=== PATIENT | female | born 1990 | race Two or more races ===

== ENCOUNTER 2016-11-05 17:27 | Emergency (ER) | payer SELFPAY ==
[~2016-11-05] VITALS: Ht 162.6 cm; Wt 58.8 kg
[~2016-11-05 17:27] MED LIST: CLARITIN,ALAVAR10 MG PO; MOTRIN800 MG PO; NOHOMEMEDS; PREDNISONE10 MG PO; PROVENTIL HFA6.7 GM IH; TAMIFLU75 MG PO; ZOFRAN ODT4 MG PO
[2016-11-05 17:51] LABS: HEMATOCRIT 38.3 % (36.0-46.0); MCH 30.8 PG (29.0-34.0); MCHC 33.4 G/DL (30.0-36.0); MCV 92.3 FL (83-99); MEAN PLAT.VOLUME 9.2 uM^3 (9.5-12.4); PLATELET COUNT 234 K/uL (156-360); RBC DIS.WIDTH-CV 12.1 % (11.8-14.6); RBC DIS.WIDTH-SD 41.2 % (39-53); RED BLOOD COUNT 4.15 M/uL (3.80-5.20); WHITE BLOOD COUNT 5.5 K/uL (4.1-10.2)
[2016-11-05 18:06] LABS: CHLORIDE 103 mEq/L (99-109); POTASSIUM 3.6 mEq/L (3.7-5.4); SODIUM 135 mEq/L (136-147)
[2016-11-05 18:08] LABS: GLUCOSE 120 mg/dL (70-99)
[2016-11-05 18:09] LABS: ANION GAP 9 MEQ/L (2-14)
[2016-11-05 18:10] LABS: TOTAL BILIRUBIN 0.4 mg/dL (0.0-1.0)
[2016-11-05 18:12] LABS: ALKALINE PHOSPHATASE 37 IU/L (3-129); GFR ESTIMATE (CALCULATED) > 59 mL/min/
[2016-11-05 18:13] LABS: UREA NITROGEN (BUN) 11 mg/dL (9-23)
[2016-11-05 18:20] LABS: QUANTITATIVE HCG 932.5 MIU/ML
[2016-11-05 19:13] LABS: ADD MIUA? YES; BILIRUBIN NEGATIVE; BLOOD NEGATIVE; COLOR YELLOW ((YELLOW)); GLUCOSE (STRIP) NEGATIVE; KETONES 20; LEUKOCYTES NEGATIVE; NITRITE POSITIVE; PROTEIN (STRIP) 30; SPECIFIC GRAVITY 1.026 (1.000-1.030); UROBILINOGEN 0.2 MG/DL (0.2-1.0)
[2016-11-05 19:25] LABS: BACTERIA NONE SEEN /HPF; EPITHELIAL CELLS 2+ /HPF; MUCUS 4+ /LPF; RED BLOOD CELLS NONE SEEN /HPF (0-5); UCUL ADDED? NO; WHITE BLOOD CELLS NONE SEEN /HPF (0-5)
[2016-11-05 19:37] LABS: INFLUENZA A VIRAL ANTIGEN NEGATIVE; INFLUENZA B VIRAL ANTIGEN POSITIVE
[2016-11-05] MEDS ORDERED: ZITHROMAX Z-PA250 MG PO (20:09)
[2016-11-05] MEDS ORDERED: TAMIFLU75 MG PO (20:09)
[2016-11-05 20:33] VITALS: BP 131/78
== END 2016-11-05 20:35 | disposition home or self-care (01) ==
LOC: EME 17:27
PROVIDERS: Physician Assistant
DX: O23.11 Infections of bladder in pregnancy, first trimester (principal); J10.1 Influenza due to other identified influenza virus with other respiratory manifestations; Z3A.00 Weeks of gestation of pregnancy not specified; Z88.1 Allergy status to other antibiotic agents
CPT/HCPCS: 80053; 81003; 84702; 85027; 87077; 87086; 87186; 87502; 99281; 99283

== ENCOUNTER 2017-04-22 21:16 | Outpatient (CLI) | payer OTHER ==
[~2017-04-22 21:16] MED LIST changes: +ZITHROMAX Z-PA250 MG PO
[2017-04-22 21:39] VITALS: BP 102/54
[2017-04-22 23:45] LABS: AMPHETAMINE NEGATIVE (500 ng/mL); BARBITURATES NEGATIVE (200 ng/mL); BENZODIAZEPINES NEGATIVE (150 ng/mL); COCAINE NEGATIVE (150 ng/mL); INTERNAL CONTROLS VALID? YES; METHADONE NEGATIVE (200 ng/mL); METHAMPHETAMINE NEGATIVE (500 ng/mL); OPIATES (MORPHINE) NEGATIVE (100 ng/mL); OXYCODONE NEGATIVE (100 ng/mL); PHENCYCLIDINE NEGATIVE (25 ng/mL); PROPOXYPHENE NEGATIVE (300 ng/mL); THC CANNABINOIDS PRESUMPTIVE POSITIVE (50 ng/mL); TRICYCLIC ANTIDEPRESSANTS NEGATIVE (300 ng/mL)
[2017-04-22 23:47] LABS: ADD MEDTOX COMMENT Y
[2017-04-22 23:57] VITALS: BP 109/55
[2017-04-23 00:01] LABS: ADD MIUA? YES; BILIRUBIN NEGATIVE; BLOOD NEGATIVE; COLOR YELLOW ((YELLOW)); GLUCOSE (STRIP) NEGATIVE; KETONES NEGATIVE; LEUKOCYTES TRACE; NITRITE NEGATIVE; PROTEIN (STRIP) 30; SPECIFIC GRAVITY 1.026 (1.000-1.030)
[2017-04-23] MEDS ORDERED: PRENATAL TABLE1 EAC3 PO (00:17)
[2017-04-23] MEDS ORDERED: FOLIC ACID1 MG PO (00:18)
[2017-04-23 00:46] LABS: RED BLOOD CELLS NONE SEEN /HPF (0-5); WHITE BLOOD CELLS 0-5 /HPF (0-5)
[2017-04-23 00:47] LABS: EPITHELIAL CELLS 2+ /HPF
[2017-04-23 00:48] LABS: AMORPHOUS PHOSPHATE CRYSTALS 3+; BACTERIA RARE /HPF; CASTS NONE SEEN /LPF; CRYSTALS PRESENT; MUCUS NONE SEEN /LPF
== END 2017-04-23 00:25 | disposition home or self-care (01) ==
LOC: LDRP-OP → 2WEST 21:18 → LDRP-OP 08-11 14:35
PROVIDERS: Advanced Practice Midwife
DX: O26.899 Other specified pregnancy related conditions, unspecified trimester (principal); R10.2 Pelvic and perineal pain; O99.330 Smoking (tobacco) complicating pregnancy, unspecified trimester; F17.200 Nicotine dependence, unspecified, uncomplicated; O99.320 Drug use complicating pregnancy, unspecified trimester; F12.90 Cannabis use, unspecified, uncomplicated; Z3A.00 Weeks of gestation of pregnancy not specified
CPT/HCPCS: 59025; 81003; 84999; 87086; G0378

== ENCOUNTER 2017-07-11 04:54 | Inpatient (IN) | payer OTHER ==
[~2017-07-11] VITALS: Ht 162.6 cm; Wt 77.7 kg
[~2017-07-11 04:54] MED LIST changes: +FOLIC ACID1 MG PO; +PRENATAL TABLE1 EAC3 PO
[2017-07-11 05:21] VITALS: BP 133/81
[2017-07-11 05:42] VITALS: BP 121/64
[2017-07-11 06:00] VITALS: BP 121/72
[2017-07-11 08:44] VITALS: BP 109/59
[2017-07-11 15:27] VITALS: BP 118/65
[2017-07-12 06:13] LABS: BASOPHIL COUNT 0.1 K/uL (0-0.1); EOSINOPHIL COUNT 0.1 K/uL (0-0.3); HEMATOCRIT 35.4 % (36.0-46.0); IMMATURE GRANULOCYTE (%) 1.7 % (0.0-0.7); IMMATURE GRANULOCYTE COUNT 0.2 K/uL; INSTRUMENT ABS NEUTROPHIL CT 8.4 K/uL; LYMPHOCYTE COUNT 2.5 K/uL (1.0-2.8); MCHC 33.9 G/DL (30.0-36.0); MCV 94.4 FL (83-99); MEAN PLAT.VOLUME 10.3 uM^3 (9.5-12.4); MONOCYTE (%) 6.4 % (3-12); MONOCYTE COUNT 0.8 K/uL (0-0.8); NEUTROPHIL (%) 69.4 % (45-76); NEUTROPHIL COUNT 8.4 K/uL (1.8-6.4); PLATELET COUNT 266 K/uL (156-360); RBC DIS.WIDTH-SD 44.9 % (39-53); RED BLOOD COUNT 3.75 M/uL (3.80-5.20); WHITE BLOOD COUNT 12.1 K/uL (4.1-10.2)
[2017-07-12 20:11] LABS: AMPHETAMINES QUANT VALUE 0 NG/ML; BARBITUATES QUANT VALUE 0 NG/ML; BENZODIAZEPINES QUANT VALUE 0 NG/ML; BENZODIAZEPINES, URINE SCREEN Negative (200 ng/mL); MARIJUANA QUANT VALUE 0 NG/ML; OPIATES QUANTITATIVE VALUE 0 NG/ML; PHENCYCLIDINE QUANT VALUE 0 NG/ML
[2017-07-13 07:21] VITALS: BP 115/65
== END 2017-07-13 12:49 | disposition home or self-care (01) | DRG 775 ==
LOC: LDRP-OP → 2WEST 04:55 → LDRP-OP 08-11 00:36
PROVIDERS: Advanced Practice Midwife
PROC: 10E0XZZ Delivery of Products of Conception, External Approach (ICD-10-PCS; principal; 2017-07-11)
DX: O99.344 Other mental disorders complicating childbirth (principal); F32.9 Major depressive disorder, single episode, unspecified; F41.9 Anxiety disorder, unspecified; O99.334 Smoking (tobacco) complicating childbirth; F17.200 Nicotine dependence, unspecified, uncomplicated; Z3A.39 39 weeks gestation of pregnancy; Z37.0 Single live birth
CPT/HCPCS: 80306 90; 85025; J2590